=== PATIENT | male | born 1980 | race Caucasian/White ===

== ENCOUNTER 2016-11-09 21:56 | Emergency (ER) | payer SELFPAY ==
[~2016-11-09] VITALS: Ht 167.6 cm; Wt 77.1 kg
--- NOTE | 2016-11-09 21:56 | NUR ---
[facility], PREBOOK. TAKEN TO [facility]
[2016-11-09 21:58] VITALS: BP 138/98
--- NOTE | 2016-11-09 22:24 | NUR ---
Dr. Archer evaluating patient
[2016-11-09 22:45] VITALS: BP 138/98
--- NOTE | 2016-11-09 22:45 | NUR ---
Patient discharged with v/s stable. Written and verbal after care instructions given and explained. Patient verbalized understanding. Police with in custody. All questions addressed prior to discharge. Advised to follow up with [employer]D.
--- NOTE | 2016-11-09 22:45 | NUR ---
PATIENT BIB [facility] [employer]. PATIENT EXAMINED BY DR. JARRETT. PATIENT MEDICALLY CLEARED AND RELEASED IN CUSTODY IN STABLE CONDITION. ORIGINAL PRE-BOOK FORM GIVEN TO [facility] [employer] .
== END 2016-11-09 22:45 ==
LOC: MED 21:56
DX: Z02.89 Encounter for other administrative examinations (principal); S01.111A Laceration without foreign body of right eyelid and periocular area, initial encounter; R03.0 Elevated blood-pressure reading, without diagnosis of hypertension; Y35.813A Legal intervention involving manhandling, suspect injured, initial encounter; Y93.72 Activity, wrestling; Y92.89 Other specified places as the place of occurrence of the external cause; Y99.8 Other external cause status
CPT/HCPCS: 99283